=== PATIENT | male | born 1960 ===

== ENCOUNTER 2020-12-06 00:46 | Day surgery (SDC) | payer OTHER | END 2020-12-06 23:05 | disposition home or self-care (01) | LOC: WOUND 00:46 | DX: L28.2 Other prurigo (principal); R21 Rash and other nonspecific skin eruption | CPT/HCPCS: A9270; G0463 ==

== ENCOUNTER → 2021-08-15 | Outpatient (CLI) | payer OTHER | LOC: LAB SHORT 19:10 | DX: L82.1 Other seborrheic keratosis (principal); L57.8 Other skin changes due to chronic exposure to nonionizing radiation; L40.0 Psoriasis vulgaris; L08.9 Local infection of the skin and subcutaneous tissue, unspecified; B35.3 Tinea pedis; R21 Rash and other nonspecific skin eruption | CPT/HCPCS: 87070; 87077; 87147; 87186; 87205 ==

== ENCOUNTER → 2021-09-25 | Outpatient (CLI) | payer OTHER | LOC: LAB SHORT 16:00 → LAB 16:00 | DX: L08.9 Local infection of the skin and subcutaneous tissue, unspecified (principal); B35.3 Tinea pedis; L30.2 Cutaneous autosensitization; L57.8 Other skin changes due to chronic exposure to nonionizing radiation; R60.0 Localized edema | CPT/HCPCS: 87070; 87205 ==